=== PATIENT | female | born 1970 | race Caucasian/White ===

== ENCOUNTER 2016-11-03 12:43 | Emergency (ER) | payer OTHER ==
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
--- NOTE | 2016-11-03 13:28 | DIAGNOSTIC IMAGING REPORT ---
PROCEDURE: CT CERVICAL SPINE W/O CONTRAST INDICATION: TRAUMA/INJURY TECHNIQUE: Noncontrast axial images with sagittal and coronal reformations. COMPARISON: None. FINDINGS: No evidence of an acute process or fracture. Alignment is normal. Spondylosis C4-5 and C5-6. IMPRESSION: 1. Negative CT cervical spine. No evidence of an acute process or fracture.
--- NOTE | 2016-11-03 13:33 | DIAGNOSTIC IMAGING REPORT ---
PROCEDURE: CT LUMBAR SPINE W/O CONTRAST INDICATION: TRAUMA/INJURY TECHNIQUE: Noncontrast axial images with sagittal and coronal reformations. COMPARISON: None. FINDINGS: There is no fracture or dislocation. Normal alignment. No bony lesions are present. IMPRESSION: 1. No fracture or dislocation. 2. Results were called to emergency department at 01:33 p.m.
--- NOTE | 2016-11-03 14:05 | ED ORDER SUMMARY ---
..... Patient: MERRICK DIXON OrderSheet [facility] VisitID: [id number] [place] [address] 45y, F Registration Date/Time: 11/03/2016 ORDER SHEET Weight: 46.2 kg (stated) Allergies: None GENERAL ORDERS: CT Head wo Cont Urgent (12:57 11/03/2016 Janet Perla) (Ack 12:59 LNations ER Tech1) (13:25 JBoardley R.N.) CT Lumbar Spine wo Cont Urgent (12:57 11/03/2016 Janet Prela) (Ack 12:59 LNations ER Tech1) (13:25 JBoardley R.N.) CT Cervical Spine wo Cont Urgent (12:57 11/03/2016 Janet Perla) (Ack 12:59 LNations ER Tech1) (13:25 JBoardley R.N.) Ice (12:58 11/03/2016 Janet Perla) (Ack 12:59 LNations ER Tech1) (13:07 JBoardley R.N.) Ice (13:32 11/03/2016 Janet Perla) (13:33 JBoardley R.N.) MEDICATION ORDERS: Percocet PO 5/325 mg (HIGH ALERT MEDICATION, NOW) (12:58 11/03/2016 Janet Perla) (Ack 13:03 JBoardley R.N.) (13:06 JBoardley R.N.) IV FLUIDS: ORDER SHEET NOTES: [Electronically signed by Maninder Bean Dr. (05:26 11/06/2016)] [Electronically signed by Angela Bedoya R.N. (06:50 11/08/2016)] [Electronically locked/signed by Anegla Bedoya R.N. (06:50 11/08/2016)]
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
--- NOTE | 2016-11-03 14:05 | ED ORDER SUMMARY ---
..... Patient: MERRICK DIXON OrderSheet [facility] VisitID: [id number] [place] [address] 45y, F Registration Date/Time: 11/03/2016 ORDER SHEET Weight: 46.2 kg (stated) Allergies: None GENERAL ORDERS: CT Head wo Cont Urgent (12:57 11/03/2016 Janet Perla) (Ack 12:59 LNations ER Tech1) (13:25 JBoardley R.N.) CT Lumbar Spine wo Cont Urgent (12:57 11/03/2016 Janet Perla) (Ack 12:59 LNations ER Tech1) (13:25 JBoardley R.N.) CT Cervical Spine wo Cont Urgent (12:57 11/03/2016 Janet Perla) (Ack 12:59 LNations ER Tech1) (13:25 JBoardley R.N.) Ice (12:58 11/03/2016 Janet Perla) (Ack 12:59 LNations ER Tech1) (13:07 JBoardley R.N.) Ice (13:32 11/03/2016 Janet Perla) (13:33 JBoardley R.N.) MEDICATION ORDERS: Percocet PO 5/325 mg (HIGH ALERT MEDICATION, NOW) (12:58 11/03/2016 Janet Perla) (Ack 13:03 JBoardley R.N.) (13:06 JBoardley R.N.) IV FLUIDS: ORDER SHEET NOTES: [Electronically signed by Maninder Bean Dr. (05:26 11/06/2016)] [Electronically signed by Angela Bedoya R.N. (06:50 11/08/2016)] [Electronically locked/signed by Angela Bedoya R.N. (06:50 11/08/2016)]
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
--- NOTE | 2016-11-08 06:51 | ED MED RECONCILIATION SUMMARY ---
Patient: MERRICK DIXON Medication Reconciliation Report [facility] VisitID: [id number] [place] [address] 45y, F Registration Date/Time: 11/03/2016 Weight: 46.2 kg Height/Length: 62 in. BMI: 18.6 ALLERGIES: None The patient's Home Medications are listed below: NONE. The source(s) of the original Home Medication information: patient The following Medications were given to the patient in the Emergency Department: Percocet [PO] PO 1 tab, administered: 11/03/2016 1:06:00 PM The following Medications were prescribed to the patient: Motrin (available over the counter): take according to label instructions. -- Maninder Bean Dr. Percocet 5 mg/325 mg: take 1 tablet orally every 6 hours as needed for pain. Dispense twelve (12). No refill. Substitution is permissible. -- Maninder Bean Dr.
--- NOTE | 2016-11-08 06:51 | ED MED RECONCILIATION SUMMARY ---
Patient: MERRICK DIXON Medication Reconciliation Report [facility] VisitID: [id number] [place] [address] 45y, F Registration Date/Time: 11/03/2016 Weight: 46.2 kg Height/Length: 62 in. BMI: 18.6 ALLERGIES: None The patient's Home Medications are listed below: NONE. The source(s) of the original Home Medication information: patient The following Medications were given to the patient in the Emergency Department: Percocet [PO] PO 1 tab, administered: 11/03/2016 1:06:00 PM The following Medications were prescribed to the patient: Motrin (available over the counter): take according to label instructions. -- Maninder Bean Dr. Percocet 5 mg/325 mg: take 1 tablet orally every 6 hours as needed for pain. Dispense twelve (12). No refill. Substitution is permissible. -- Maninder Bean Dr.
--- NOTE | 2016-11-08 06:51 | ED MAR SUMMARY ---
..... Medication Administration Record [facility] [address] [place] [address] Patient: MERRICK DIXON Visit ID: [id number] 45y, F Weight: 46.2 kg Height/Length: 62 in BMI: 18.6 ALLERGIES: None Given 13:06 11/03/2016 Stanton Chan R.N. Medication Administered: PERCOCET [PO] (OXYCODONE-ACETAMINOPHEN), Dose: 1 tab PO. Medication Ordered: Percocet PO 5/325 mg (HIGH ALERT MEDICATION, NOW).
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
--- NOTE | 2016-11-08 06:51 | ED MAR SUMMARY ---
..... Medication Administration Record [facility] [address] [place] [address] Patient: MERRICK DIXON Visit ID: [id number] 45y, F Weight: 46.2 kg Height/Length: 62 in BMI: 18.6 ALLERGIES: None Given 13:06 11/03/2016 Stanton Chan R.N. Medication Administered: PERCOCET [PO] (OXYCODONE-ACETAMINOPHEN), Dose: 1 tab PO. Medication Ordered: Percocet PO 5/325 mg (HIGH ALERT MEDICATION, NOW).
== END 2016-11-03 14:22 | disposition home or self-care (01) ==
LOC: ED SRH 12:43
DX: S16.1XXA Strain of muscle, fascia and tendon at neck level, initial encounter (principal); S33.5XXA Sprain of ligaments of lumbar spine, initial encounter; S09.90XA Unspecified injury of head, initial encounter; V69.59XA Passenger in heavy transport vehicle injured in collision with other motor vehicles in traffic accident, initial encounter; Y93.89 Activity, other specified; Y92.410 Unspecified street and highway as the place of occurrence of the external cause; Y99.8 Other external cause status